=== PATIENT | male | born 1975 | race African-American/Black ===

== ENCOUNTER 2018-11-28 18:55 | Emergency (ER) | payer OTHER ==
[~2018-11-28] VITALS: Ht 188 cm; Wt 103.0 kg
[2018-11-28] MEDS ORDERED: PREDNISONE 20MG TABLET PO STA (20:13)
[2018-11-28] MEDS ORDERED: LEVOFLOXACIN 500MG TABLET PO ONE (20:15)
[2018-11-28] MEDS ORDERED: IPRATROPIUM/ALBUTEROL 0.5-3(2.5)MG/3ML NEB HHN ONE (20:15)
[2018-11-28 22:24] VITALS: BP 140/87
== END 2018-11-28 22:25 | disposition home or self-care (01) ==
LOC: ER 18:55
DX: J20.9 Acute bronchitis, unspecified (principal); F12.10 Cannabis abuse, uncomplicated
CPT/HCPCS: 71045; 94640; 99283; J7512; J7620; Z7610